=== PATIENT | female | born 1970 | race Caucasian/White ===

== ENCOUNTER 2017-11-25 15:56 | Emergency (ER) | payer SELFPAY ==
--- NOTE | 2017-11-25 16:19 | ER Document Report ---
ED GI/ - General Chief Complaint: Abdominal Pain Stated Complaint: STOMACH PAIN, DIFFICULTY BREATHING Time Seen by Provider: 11/25/17 16:18 Notes: This is a 47-year-old female patient. Presents emergency department with abdominal pain and hives. States that she has psoriatic arthritis. It occasionally gets nausea and abdominal pain and then followed by hives. Has been getting worse. Hives are everywhere. Belly pain is getting worse. TRAVEL OUTSIDE OF THE [place] IN LAST 30 DAYS: No - HPI Patient complains to provider of: Abdominal pain, Diarrhea, Vomiting Timing/Duration: Gradual, Worse Quality of pain: Cramping Severity at maximum: Moderate Severity in ED: Moderate Pain Level: 3 - Related Data Allergies/Adverse Reactions: cephalexin [From Keflex] Allergy (Verified 11/25/17 15:59) codeine Allergy (Verified 11/25/17 15:59) latex Allergy (Verified 11/25/17 15:59) Penicillins Allergy (Verified 11/25/17 15:59) Past Medical History - General Information source: Patient - Social History Smoking Status: Never Smoker Cigarette use (# per day): No Frequency of alcohol use: None Drug Abuse: None Lives with: Spouse/Significant other Family History: None - Past Medical History Cardiac Medical History: Reports: Hx Hypertension Pulmonary Medical History: Reports: None EENT Medical History: Reports: None Neurological Medical History: Reports: None Endocrine Medical History: Reports: Other - Hyperglycemia Renal/ Medical History: Reports: None Malignancy Medical History: Reports: None GI Medical History: Reports: None Musculoskeltal Medical History: Reports None Skin Medical History: Reports Hx Psoriasis - History of urticarial hives, Reports Other Psychiatric Medical History: Reports: None Traumatic Medical History: Reports: None Infectious Medical History: Reports: None Past Surgical History: Reports: Hx Abdominal Surgery, Hx Cholecystectomy Review of Systems - Review of Systems Constitutional: No symptoms reported EENT: No symptoms reported Cardiovascular: Palpitations Respiratory: No symptoms reported Gastrointestinal: Abdominal pain, Diarrhea, Nausea, Vomiting Genitourinary: No symptoms reported Female Genitourinary: No symptoms reported Musculoskeletal: No symptoms reported Skin: Rash, Other - Hives, urticaria Hematologic/Lymphatic: No symptoms reported Neurological/Psychological: No symptoms reported Physical Exam - Vital signs Vitals: Temp Pulse Resp BP Pulse Ox 97.4 F 153 H 24 H 83/55 L 100 11/25/17 15:58 11/25/17 15:58 11/25/17 15:58 11/25/17 15:58 11/25/17 15:58 Interpretation: Tachycardic - General General appearance: Alert, Anxious In distress: Moderate - HEENT Head: Normocephalic, Atraumatic Eyes: Normal Pupils: PERRL Mouth/Lips: Normal. No: Angioedema Mucous membranes: Dry - Respiratory Respiratory status: No respiratory distress Chest status: Nontender Breath sounds: Normal Chest palpation: Normal - Cardiovascular Rhythm: Tachycardia Heart sounds: Normal auscultation Murmur: No - Abdominal Inspection: Normal Distension: No distension Bowel sounds: Normal Tenderness: Tender, Other - Mild diffuse tenderness. No guarding. No rebound. Negative McBurney's, negative Jeffery's. Organomegaly: No organomegaly - Back Back: Normal, Nontender - Extremities General upper extremity: Normal inspection, Nontender, Normal color, Normal ROM , Normal temperature General lower extremity: Normal inspection, Nontender, Normal color, Normal ROM , Normal temperature, Normal weight bearing. No: Leticia's sign - Neurological Neuro grossly intact: Yes Cognition: Normal Orientation: AAOx4 Da Coma Scale Eye Opening: Spontaneous Da Coma Scale Verbal: Oriented Tappen Coma Scale Motor: Obeys Commands Da Coma Scale Total: 15 Speech: Normal Motor strength normal: LUE, RUE, LLE, RLE Sensory: Normal - Psychological Associated symptoms: Normal affect, Normal mood - Skin Skin Temperature: Warm Skin Moisture: Dry Skin Color: Other - Patient has diffuse urticarial hives. There is a large hive present in low back, left lower abdomen, bilateral hands, bilateral arms, underneath her chin and on her neck. Course - Re-evaluation Re-evalutation: 11/25/17 18:01 Patient states she is allergic to Benadryl. Ordered Pepcid. Patient requesting something for pain. States that she is allergic to codeine but has had narcotics before. Will give some fentanyl. Will order Solu-Medrol. IV fluids. CT scan of the abdomen due to the abdominal pain. Reassess. 11/25/17 18:01 Of note, patient began complaining of difficulty breathing with swelling feeling in her neck. Epinephrine was ordered. Another liter of fluid ordered. Patient moved to trauma 1. C1 esterase ordered. FFP ordered. 11/25/17 18:42 FFP was initially ordered but pharmacist now states that we have C1 esterase. Will cancel the FFP and administered this empirically. 11/25/17 20:29 Patient doing better but still tachycardic. Has a little tightness in the chest. Will order repeat EKG. Will repeat lactic acid and CBC. CT scan unremarkable. Will consult hospitalist at this time for admission. 11/25/17 20:56 Hospitaist does not feel comfortable keeping patient here without an ICU with history today of angioedema. Will attempt transfer. 11/25/17 20:57 Dr. Najera accepted the patient at [facility]. Awaiting trasnfer. - Vital Signs Vital signs: Temp Pulse Resp BP Pulse Ox 97.4 F 153 H 23 H 144/99 H 95 11/25/17 15:58 11/25/17 15:58 11/25/17 21:01 11/25/17 21:01 11/25/17 21:01 - Laboratory Result Diagrams: 11/25/17 16:26 11/25/17 16:26 Laboratory results interpreted by me: 11/25/17 11/25/17 11/25/17 16:21 16:26 16:26 WBC 28.0 H RBC 6.15 H Hgb 16.9 H Hct 50.0 H RDW 16.4 H Plt Count 546 H Seg Neuts % (Manual) 80 H Band Neutrophils % 2 L Lymphocytes % (Manual) 12 L Abs Neuts (Manual) 23.0 H Abs Monocytes (Manual) 1.7 H VBG pH VBG pCO2 VBG HCO3 Potassium 3.1 L Carbon Dioxide 15 L BUN 23 H Glucose 172 H POC Glucose 140 H Lactic Acid Calcium 11.1 H Total Protein 9.4 H Urine Protein Urine Bilirubin Urine Urobilinogen Ur Leukocyte Esterase Urine Ascorbic Acid 11/25/17 11/25/17 11/25/17 16:26 16:26 19:00 WBC RBC Hgb Hct RDW Plt Count Seg Neuts % (Manual) Band Neutrophils % Lymphocytes % (Manual) Abs Neuts (Manual) Abs Monocytes (Manual) VBG pH 7.49 H VBG pCO2 20.6 L VBG HCO3 15.2 L Potassium Carbon Dioxide BUN Glucose POC Glucose Lactic Acid 2.2 H Calcium Total Protein Urine Protein 100 H Urine Bilirubin SMALL H Urine Urobilinogen 2.0 H Ur Leukocyte Esterase LARGE H Urine Ascorbic Acid 40 H Critical Care Note - Critical Care Note Total time excluding time spent on procedures (mins): 75 Comments: Tachycardia, angioedema, Discharge - Discharge Clinical Impression: Angioedema Qualifiers: Encounter type: initial encounter Qualified Code(s): T78.3XXA - Angioneurotic edema, initial encounter Abdominal pain Qualifiers: Abdominal location: generalized Qualified Code(s): R10.84 - Generalized abdominal pain Urinary tract infection Qualifiers: Urinary tract infection type: site unspecified Hematuria presence: without hematuria Qualified Code(s): N39.0 - Urinary tract infection, site not specified Disposition: [facility] Admitting Provider: Dr. Najera
[2017-11-25 16:50] LABS: VENOUS BLOOD BASE EXCESS -5.1 mmol/L; VENOUS BLOOD HCO3 15.2 mmol/L (20-32); VENOUS BLOOD PCO2 20.6 mmHg (35-63); VENOUS BLOOD PH 7.49 (7.30-7.42)
[2017-11-25 16:51] LABS: INTERNATIONAL RATION (INR) 0.86; PROTHROMBIN TIME 12.4 SEC (11.4-15.4)
[2017-11-25 16:53] LABS: HEMOGLOBIN 16.9 g/dL (12.0-15.5); MEAN CORPUSCULAR HEMOGLOBIN 27.5 pg (27.0-33.4); MEAN CORPUSCULAR HGB CONC 33.8 g/dL (32.0-36.0); MEAN CORPUSCULAR VOLUME 81 fl (80-97); PLATELET COUNT 546 10^3/uL (150-450); RED BLOOD COUNT 6.15 10^6/uL (3.72-5.28); RED CELL DISTRIBUTION WIDTH 16.4 % (11.5-14.0)
[2017-11-25 17:06] LABS: ALANINE AMINOTRANSFERASE 18 U/L (9-52); ALBUMIN 4.7 g/dL (3.5-5.0); ALKALINE PHOSPHATASE 108 U/L (38-126); ANION GAP 18 (5-19); ASPARTATE AMINO TRANSFERASE 27 U/L (14-36); BILIRUBIN,DIRECT 0.3 mg/dL (0.0-0.4); BILIRUBIN,TOTAL 0.6 mg/dL (0.2-1.3); BLOOD UREA NITROGEN 23 mg/dL (7-20); CALCIUM 11.1 mg/dL (8.4-10.2); CARBON DIOXIDE 15 mmol/L (22-30); CHLORIDE 106 mmol/L (98-107); GLUCOSE 172 mg/dL (75-110); POTASSIUM 3.1 mmol/L (3.6-5.0); SODIUM 138.6 mmol/L (137-145); TOTAL PROTEIN 9.4 g/dL (6.3-8.2)
[2017-11-25] MEDS ORDERED: FAMOTIDINE INJ/PF 20 MG/2 ML SDV IV ONE (17:16)
[2017-11-25] MEDS ORDERED: METHYLPREDNISOLONE INJ 125 MG/2 ML SDV IV ONE (17:16)
[2017-11-25] MEDS ORDERED: NORMAL SALINE 1000 ML 1,000 ML IV ONE ×3 (17:17→22:46)
[2017-11-25] MEDS ORDERED: FENTANYL CITRATE INJ/PF 100 MCG/2 ML AMPUL IV ONE (17:17)
[2017-11-25 17:18] LABS: ABSOLUTE LYMPHOCYTES# (MANUAL) 3.4 10^3/uL (0.5-4.7); ABSOLUTE MONOCYTES # (MANUAL) 1.7 10^3/uL (0.1-1.4); BAND NEUTROPHILS % (MANUAL) 2 % (3-5); BASOPHILS % (MANUAL) 0 % (0-2); EOSINOPHILS % (MANUAL) 0 % (0-6); LYMPHOCYTES % (MANUAL) 12 % (13-45); MONOCYTES % (MANUAL) 6 % (3-13); SEGMENTED NEUTROPHILS % (MAN) 80 % (42-78); TOTAL CELLS COUNTED 100
[2017-11-25 17:20] LABS: ANISOCYTOSIS 1+; PLATELET COMMENT INCREASED; POIKILOCYTOSIS SLIGHT; ROULEAUX SLIGHT; TOXIC GRANULATION SLIGHT
[2017-11-25] MEDS ORDERED: EPINEPHRINE INJ/PF 1 MG/1 ML AMPULE IM ONE (17:44)
[2017-11-25] MEDS ORDERED: NORMAL SALINE 250 ML IV PRN (17:45)
[2017-11-25] MEDS ORDERED: ONDANSETRON HCL INJ/PF 4 MG/2 ML SDV IV ONE (19:04)
[2017-11-25] MEDS ORDERED: [UNRECOGNIZED DRUG - REMARK] IV ONE (19:30)
[2017-11-25 19:32] LABS: APPEARANCE,URINE CLOUDY; BILIRUBIN,URINE SMALL (NEGATIVE); COLOR,URINE AMBER; GLUCOSE, URINE NEGATIVE (NEGATIVE); KETONES,URINE NEGATIVE (NEGATIVE); LEUKOCYTE ESTERASE,URINE LARGE (NEGATIVE); NITRITE,URINE NEGATIVE (NEGATIVE); PROTEIN,URINE 100 mg/dL (NEGATIVE); URINE SPECIFIC GRAVITY 1.031
[2017-11-25] MEDS ORDERED: C1 ESTERASE INHIBITOR 500 UNIT IV ONE (20:00)
--- NOTE | 2017-11-25 20:23 | RADIOLOGY REPORT (SQ) ---
EXAM DESCRIPTION: CT ABD/PELVIS WITH IV ORAL COMPLETED DATE/TIME: 11/25/2017 8:14 pm REASON FOR STUDY: abd pain COMPARISON: None. TECHNIQUE: CT scan of the abdomen and pelvis performed with intravenous and oral contrast using nicole kathrine scanning technique with dynamic intravenous contrast injection. Images reviewed with lung, soft t issue, and bone windows. Reconstructed coronal and sagittal MPR images reviewed. Delayed images for e valuation of the urinary system also acquired. All images stored on PACS. All CT scanners at this facility use dose modulation, iterative reconstruction, and/or weight based d osing when appropriate to reduce radiation dose to as low as reasonably achievable (ALARA). [facility]: Dose Right [facility]: CareDose [facility]: Dose Right [facility]: Teradose 4D [facility]: [employer] CONTRAST TYPE AND DOSE: contrast/concentration: Isovue 370.00 mg/ml; Total Contrast Delivered: 100.0 ml; Total Saline Delivered: 45.0 ml RENAL FUNCTION: GFR > 60. RADIATION DOSE: CT Rad equipment meets quality standard of care and radiation dose reduction techniq ues were employed. CTDIvol: 21.1 - 21.1 mGy. DLP: 2346 mGy-cm. . LIMITATIONS: None. FINDINGS: LOWER CHEST: No significant findings. No nodules or infiltrates. LIVER: Mild to moderate diffuse hepatic steatosis. No masses. No dilated ducts. SPLEEN: Normal size. No focal lesions. PANCREAS: No masses. No significant calcifications. No adjacent inflammation or peripancreatic fluid collections. Pancreatic duct not dilated. GALLBLADDER: Surgically absent. ADRENAL GLANDS: No significant masses or asymmetry. RIGHT KIDNEY AND URETER: No solid masses. No significant calcifications. No hydronephrosis or hyd roureter. LEFT KIDNEY AND URETER: No solid masses. No significant calcifications. No hydronephrosis or hydr oureter. AORTA AND VESSELS: No aneurysm. No dissection. Renal arteries, SMA, celiac without stenosis. RETROPERITONEUM: No retroperitoneal adenopathy, hemorrhage or masses. BOWEL AND PERITONEAL CAVITY: No obstruction. No visualized masses. No free fluid. No inflammatory ch anges or thickening of bowel wall. APPENDIX: Normal. PELVIS: No significant masses. Normal bladder. No free fluid. ABDOMINAL WALL: No masses. Fat containing periumbilical hernia with factual defect measuring 14 mm a nd hernia sac measuring 6.7 cm soft tissues otherwise normal. BONES: Degenerative disc disease L5-S1. No fracture or suspicious osseous lesion. OTHER: No other significant finding. IMPRESSION: NO ACUTE INFLAMMATORY CHANGE IDENTIFIED WITHIN THE ABDOMEN OR PELVIS. HEPATIC STEATOSIS. FAT CONTAINING PERIUMBILICAL HERNIA. TECHNICAL DOCUMENTATION: JOB ID: [id number] Quality ID # 436: Final reports with documentation of one or more dose reduction techniques (e.g., Au tomated exposure control, adjustment of the mA and/or kV according to patient size, use of iterative reconstruction technique) 2010 [employer]- All Rights Reserved
[2017-11-25] MEDS ORDERED: CIPROFLOXACIN 400 MG/D5W RTU 400 MG/200 ML RTUPB IV ONE (21:17)
[2017-11-25 22:04] LABS: HEMATOCRIT 47.4 % (36.0-47.0); HEMOGLOBIN 15.7 g/dL (12.0-15.5); MEAN CORPUSCULAR HEMOGLOBIN 27.2 pg (27.0-33.4); MEAN CORPUSCULAR HGB CONC 33.1 g/dL (32.0-36.0); MEAN CORPUSCULAR VOLUME 82 fl (80-97); PLATELET COUNT 501 10^3/uL (150-450); RED BLOOD COUNT 5.76 10^6/uL (3.72-5.28); RED CELL DISTRIBUTION WIDTH 16.3 % (11.5-14.0)
[2017-11-25 22:20] LABS: WHITE BLOOD COUNT 33.4 10^3/uL (4.0-10.5)
[2017-11-25 22:25] LABS: ABSOLUTE LYMPHOCYTES# (MANUAL) 2.3 10^3/uL (0.5-4.7); ABSOLUTE MONOCYTES # (MANUAL) 0.3 10^3/uL (0.1-1.4); ABSOLUTE NEUTROPHILS# (MANUAL) 30.7 10^3/uL (1.7-8.2); BASOPHILS % (MANUAL) 0 % (0-2); EOSINOPHILS % (MANUAL) 0 % (0-6); LYMPHOCYTES % (MANUAL) 3 % (13-45); MONOCYTES % (MANUAL) 1 % (3-13); SEGMENTED NEUTROPHILS % (MAN) 92 % (42-78); TOTAL CELLS COUNTED 100
[2017-11-25 22:29] LABS: ANISOCYTOSIS SLIGHT; PLATELET COMMENT INCREASED; PLATELET LARGE PRESENT; POLYCHROMASIA SLIGHT; TOXIC GRANULATION 1+
[2017-11-26 00:15] VITALS: BP 152/96
--- NOTE | 2017-11-26 09:39 | EKG REPORT ---
SEVERITY:- OTHERWISE NORMAL ECG - SINUS TACHYCARDIA : Confirmed by: Maricarmen López 26-Nov-2017 09:38:53
--- NOTE | 2017-11-26 09:39 | EKG REPORT ---
SEVERITY:- BORDERLINE ECG - SINUS TACHYCARDIA PROBABLE LEFT ATRIAL ABNORMALITY BORDERLINE T ABNORMALITIES, INFERIOR LEADS : Confirmed by: Maricarmen López 26-Nov-2017 09:38:46
[2017-11-29 16:28] LABS: PATH REVIEW PATHOLOGIST REVIEWED
== END 2017-11-26 00:18 | disposition short-term general hospital (02) ==
LOC: ER 15:56
DX: T78.3XXA Angioneurotic edema, initial encounter (principal); N39.0 Urinary tract infection, site not specified; R10.84 Generalized abdominal pain; R00.0 Tachycardia, unspecified; R06.02 Shortness of breath; L40.50 Arthropathic psoriasis, unspecified; R11.0 Nausea
CPT/HCPCS: 93005; 99291; 99292; 96372; 96361; 96375; 96365; 36415; 87040; 87086; 82962; 84703; 85025; 85610; 86160; 87088; 80053; 81001; 82803; 83605; 86161; 74177; 93010; J0171; J3010; J2930; J2405; J7030; J0744; S0028; J0597

== ENCOUNTER 2020-04-11 17:48 | Emergency (ER) | payer MEDICAID ==
[2020-04-11] MEDS ORDERED: ONDANSETRON HCL INJ/PF 4 MG/2 ML SDV IV ONE (19:06)
[2020-04-11] MEDS ORDERED: MORPHINE SULFATE 10 MG/ML INJ IV ONE (19:06)
--- NOTE | 2020-04-11 19:09 | ER Document Report ---
ED Medical Screen (RME) - General Chief Complaint: Abdominal Pain Stated Complaint: RIGHT FLANK Time Seen by Provider: 04/11/20 19:02 Mode of Arrival: Ambulatory Notes: HPI; 49-year-old female presents the emergency room complaining of intermittent right lower quadrant pain for the past 2 days become more constant and sharp since yesterday. 1 episode of diarrhea last night. Nausea but no vomiting. Denies fevers. Denies any recent travel. No medications for symptoms. PE: Alert and oriented x3. Lungs clear to auscultation without rales, rhonchi, wheezes. Heart: Regular rate rhythm without murmurs, rubs, gallops. Abdomen is soft mild tenderness to the right lower quadrant. No guarding, no rebound positive bowel sounds x4. I have greeted and performed a rapid initial assessment of this patient. A co mprehensive ED assessment and evaluation of the patient, analysis of test results and completion of the medical decision making process will be conducted by additional ED providers. I have specifically instructed the patient or family members with the patient to immediately return to any nursing staff should anything change in the patient's condition or with their chief complaint. TRAVEL OUTSIDE OF THE [place] IN LAST 30 DAYS: No - Related Data Allergies/Adverse Reactions: cephalexin [From Keflex] Allergy (Verified 11/25/17 15:59) codeine Allergy (Verified 11/25/17 15:59) latex Allergy (Verified 11/25/17 15:59) lisinopril Allergy (Verified 04/11/20 18:54) Penicillins Allergy (Verified 11/25/17 15:59) Home Medications: Simvastatin, Spiriva, Atenolol, Symbicort, Hydrocodone Past Medical History - Past Medical History Cardiac Medical History: Reports: Hx Hypertension Renal/ Medical History: Denies: Hx Peritoneal Dialysis Skin Medical History: Reports Hx Psoriasis - History of urticarial hives Past Surgical History: Reports: Hx Abdominal Surgery, Hx Cholecystectomy Physical Exam - Vital signs Vitals: Temp Pulse Resp BP Pulse Ox 98.1 F 117 H 20 149/100 H 98 04/11/20 17:54 04/11/20 17:54 04/11/20 17:54 04/11/20 17:54 04/11/20 17:54 Course - Vital Signs Vital signs: Temp Pulse Resp BP Pulse Ox 98.1 F 117 H 20 149/100 H 98 04/11/20 18:57 04/11/20 17:54 04/11/20 17:54 04/11/20 17:54 04/11/20 17:54
[2020-04-11 21:07] LABS: APPEARANCE,URINE CLEAR; BILIRUBIN,URINE NEGATIVE (NEGATIVE); COLOR,URINE YELLOW; GLUCOSE, URINE NEGATIVE (NEGATIVE); KETONES,URINE NEGATIVE (NEGATIVE); LEUKOCYTE ESTERASE,URINE SMALL (NEGATIVE); NITRITE,URINE NEGATIVE (NEGATIVE); PROTEIN,URINE NEGATIVE (NEGATIVE); URINE SPECIFIC GRAVITY 1.021; UROBILINOGEN,URINE NEGATIVE mg/dL (<2.0)
--- NOTE | 2020-04-11 22:14 | ER Document Report ---
Entered by JERRY COATES SCRIBE 04/11/20 2170 Acting as scribe for:RAJEEV ZARAGOZA IV, MD ED GI/ - General Chief Complaint: Abdominal Pain Stated Complaint: RIGHT FLANK Time Seen by Provider: 04/11/20 19:02 Mode of Arrival: Ambulatory Information source: Patient Notes: This 49 year old female patient presents to the ED today with complaints of RLQ abdominal pain that started x2 days ago, worse yesterday. Patient describes the pain as intermittent and sharp initially that is now constant and radiates to her right hip and pelvis. Reports x1 episode of diarrhea yesterday with green- colored stool, but denies nausea or vomiting. She notes that she may have an umbilical hernia and that may be related to her RLQ pain. She also notes that she may have IBS or Crohn's disease, but denies an official diagnosis. Reports a surgical history of cholecystectomy. TRAVEL OUTSIDE OF THE [place] IN LAST 30 DAYS: No - Related Data Allergies/Adverse Reactions: cephalexin [From Keflex] Allergy (Verified 11/25/17 15:59) codeine Allergy (Verified 11/25/17 15:59) latex Allergy (Verified 11/25/17 15:59) lisinopril Allergy (Verified 04/11/20 18:54) Penicillins Allergy (Verified 11/25/17 15:59) Home Medications: Simvastatin, Spiriva, Atenolol, Symbicort, Hydrocodone Past Medical History - General Information source: Patient, [facility] Records - Social History Smoking Status: Never Smoker Cigarette use (# per day): No Chew tobacco use (# tins/day): No Smoking Education Provided: No Family History: Reviewed & Not Pertinent Patient has suicidal ideation: No Patient has homicidal ideation: No - Past Medical History Cardiac Medical History: Reports: Hx Hypertension Skin Medical History: Reports Hx Psoriasis - History of urticarial hives Past Surgical History: Reports: Hx Cholecystectomy, Hx Herniorrhaphy Review of Systems - Review of Systems Constitutional: No symptoms reported EENT: No symptoms reported Cardiovascular: No symptoms reported Respiratory: No symptoms reported Gastrointestinal: See HPI, Abdominal pain - RLQ, pelvis. denies: Nausea, Vomiting Genitourinary: No symptoms reported Female Genitourinary: No symptoms reported Musculoskeletal: See HPI, Joint pain - Right hip pain Skin: No symptoms reported Hematologic/Lymphatic: No symptoms reported Neurological/Psychological: No symptoms reported -: Yes All other systems reviewed and negative Physical Exam - Vital signs Vitals: Temp Pulse Resp BP Pulse Ox 98.1 F 117 H 20 149/100 H 98 04/11/20 17:54 04/11/20 17:54 04/11/20 17:54 04/11/20 17:54 04/11/20 17:54 - General General appearance: Alert In distress: None - HEENT Head: Normocephalic, Atraumatic Eyes: Normal Pupils: PERRL - Respiratory Respiratory status: No respiratory distress Chest status: Nontender Breath sounds: Normal Chest palpation: Normal - Cardiovascular Rhythm: Regular, Tachycardia Heart sounds: Normal auscultation Murmur: No Friction rub: No Gallop: None auscultated - Abdominal Tenderness: Tender - Tenderness to palpation of RLQ, Rebound, Other - Abdomen soft. No: McBurney's point - Back Back: Normal, Nontender - Extremities General upper extremity: Normal inspection General lower extremity: Normal inspection - Neurological Neuro grossly intact: Yes Orientation: AAOx4 - Psychological Associated symptoms: Normal affect, Normal mood - Skin Skin Temperature: Warm Skin Moisture: Dry Skin Color: Normal Course - Re-evaluation Re-evalutation: 04/12/20 00:30 Results of ED MSE discussed with patient. All questions were answered prior to discharge. Emergency signs and symptoms, reasons to return to the emergency department discussed with patient. - Vital Signs Vital signs: Temp Pulse Resp BP Pulse Ox 98.1 F 117 H 20 149/100 H 98 04/11/20 18:57 04/11/20 17:54 04/11/20 17:54 04/11/20 17:54 04/11/20 17:54 - Laboratory Result Diagrams: 04/11/20 22:37 04/11/20 22:37 Laboratory results interpreted by me: 04/11/20 04/11/20 04/11/20 20:20 22:37 22:37 WBC 15.2 H RDW 15.7 H Absolute Neuts (auto) 11.1 H AST 37 H Ur Leukocyte Esterase SMALL H - Diagnostic Test Radiology reviewed: Reports reviewed Discharge - Discharge Clinical Impression: Abdominal wall pain in right lower quadrant Condition: Good Disposition: HOME, SELF-CARE Additional Instructions: Return to the Emergency Department without delay if any worse. HOME CARE INSTRUCTIONS & INFORMATION: Thank you for choosing us for your medical needs. We hope you're satisfied with the care you received. After you leave, you must properly care for your problem and, at the same time, observe its progress. Any condition can change. Some illnesses can change rapidly over hours or days. If your condition worsens, return to the Emergency Department or see your physician promptly. ABOUT YOUR X-RAYS AND EKG'S: If you had an EKG or X-rays taken, they have been read by the Emergency Physician. The X-rays and EKG's will also be read by a Radiologist or Fur Scraper within 24 hours. If discrepancies are noted, you wi ll be notified by telephone. Please be certain the ED has a correct telephone number & address where you can be reached. Also, realize that some fractures or abnormalities do not show up on initial X-rays. If your symptoms continue, see your physician. ABOUT YOUR LABORATORY TEST: If you had laboratory tests, the results have been reviewed by the Emergency Physician. Some test results (for example cultures) may not be available for several days. You will be contacted if any test result shows you need additional treatment. Please be certain the ED has a correct telephone number and address where you can be reached. ABOUT YOUR MEDICATIONS: You will receive instructions on how to take your medicine on the prescription label you receive. Additional information may be provided by the Pharmacy. If you have questions afterwards, call the ED for clarification or further instructions. Some prescribed medications may cause drowsiness. Do not perform tasks such as driving a car or operating machinery without consulting your Pharmacist. If you feel you need a refill of pain medication, your condition will need re-evaluation. Please do not call for a refill of any medication. ABOUT YOUR SIGNATURE: Signature of this document acknowledges to followin. Understanding that you received emergency treatment and that you may be released before al medical problems are known or treated. Please be certain the ED has a correct phone number & address where you can be reached. 2. Acknowledgement that you will arrange for follow-up care as recommended. 3. Authorization for the Emergency Physician to provide information to your follow-up Physician in order to maximize your care. AT ANY TIME, IF YOUR SYMPTOMS CHANGE SIGNIFICANTLY OR WORSEN OR YOU DEVELOP NEW SYMPTOMS, RETURN TO THE EMERGENCY DEPARTMENT IMMEDIATELY FOR RE-EVALUATION. OUR GOAL IS TO PROVIDE EXCELLENT MEDICAL CARE! WE HOPE THAT WE HAVE MET YOUR EXPECTATIONS DURING YOUR EMERGENCY DEPARTMENT VISIT AND THAT YOU FEEL YOU HAVE RECEIVED EXCELLENT CARE! Prescriptions: Oxycodone HCl/Acetaminophen [Percocet 5-325 mg Tablet] 1 tab PO Q6HP PRN #20 tablet PRN Reason: Ondansetron [Zofran Odt 4 mg Tablet] 1 - 2 tab PO Q8HP PRN #20 tab.rapdis PRN Reason: For Nausea/Vomiting Levofloxacin [Levaquin 750 mg Tablet] 750 mg PO DAILY 4 Days #4 tablet Promethazine HCl [Phenergan 25 mg Tablet] 1 tab PO Q6H PRN #15 tablet PRN Reason: Referrals: MARNIE MEJÍA DO [Primary Care Provider] - 04/12/20 I personally performed the services described in the documentation, reviewed and edited the documentation which was dictated to the scribe in my presence, and it accurately records my words and actions.
[2020-04-11] MEDS ORDERED: ONDANSETRON HCL INJ/PF 4 MG/2 ML SDV ONE (22:44)
[2020-04-11 22:48] LABS: ABSOLUTE BASOPHILS # (AUTO) 0.1 10^3/uL (0.0-0.2); ABSOLUTE EOSINOPHILS # (AUTO) 0.2 10^3/uL (0.0-0.6); ABSOLUTE LYMPHOCYTES (AUTO) 2.8 10^3/uL (0.5-4.7); ABSOLUTE NEUT (AUTO) 11.1 10^3/uL (1.7-8.2); BASOPHILS % (AUTO) 0.9 % (0-2); EOSINOPHILS % (AUTO) 1.5 % (0-6); HEMATOCRIT 38.9 % (36.0-47.0); HEMOGLOBIN 13.4 g/dL (12.0-15.5); LYMPHOCYTES % (AUTO) 18.5 % (13-45); MEAN CORPUSCULAR HEMOGLOBIN 29.6 pg (27.0-33.4); MEAN CORPUSCULAR HGB CONC 34.4 g/dL (32.0-36.0); MEAN CORPUSCULAR VOLUME 86 fl (80-97); MONOCYTES % (AUTO) 6.5 % (3-13); PLATELET COUNT 340 10^3/uL (150-450); RED BLOOD COUNT 4.52 10^6/uL (3.72-5.28); RED CELL DISTRIBUTION WIDTH 15.7 % (11.5-14.0); SEGMENTED NEUTROPHILS % (AUTO) 72.6 % (42-78); TOTAL CELLS COUNTED % (AUTO) 100 %; WHITE BLOOD COUNT 15.2 10^3/uL (4.0-10.5)
[2020-04-11] MEDS ORDERED: HYDROMORPHONE HCL INJ/PF 2 MG/ML AMPULE IV ONE ×2 (22:48→23:58)
[2020-04-11 23:06] LABS: ALBUMIN 4.1 g/dL (3.5-5.0); ALKALINE PHOSPHATASE 83 U/L (38-126); ANION GAP 7 (5-19); ASPARTATE AMINO TRANSFERASE 37 U/L (14-36); BILIRUBIN,TOTAL 0.3 mg/dL (0.2-1.3); BLOOD UREA NITROGEN 14 mg/dL (7-20); CALCIUM 9.5 mg/dL (8.4-10.2); CARBON DIOXIDE 29 mmol/L (22-30); CHLORIDE 101 mmol/L (98-107); GLUCOSE 93 mg/dL (75-110); POTASSIUM 3.6 mmol/L (3.6-5.0); TOTAL PROTEIN 7.7 g/dL (6.3-8.2)
--- NOTE | 2020-04-11 23:40 | RADIOLOGY REPORT (SQ) ---
EXAM DESCRIPTION: CT ABDOMEN PELVIS WITH IV CONTRAST COMPLETED DATE/TME: 04/11/2020 22:05 CLINICAL HISTORY: 49 years, Female, right lower quadrant pain COMPARISON: Prior study from 11/25/2017 TECHNIQUE: Contrast enhanced CT of the abdomen/pelvis was acquired. Coronal and sagittal reformations were created. Images were obtained after the uneventful administration of 100 mL of Omnipaque 350 intravenous contrast. Images stored on PACS. All CT scanners at this facility use dose modulation, iterative reconstruction, and/or weight based dosing when appropriate to reduce radiation dose to as low as reasonably achievable (ALARA). [facility]: Dose Right [facility]: CareDose [facility]: Dose Right [facility]: Teradose 4D [facility]: [employer] LIMITATIONS: None. FINDINGS: Limited evaluation of the lower chest reveals bands of opacity about both lung bases, indicating areas of atelectasis and/or scar. Lung bases are otherwise clear. The liver is diffusely low in attenuation relative to the spleen. No focal liver lesions are appreciated. Spleen, pancreas, both adrenal glands, and both kidneys appear normal. The gallbladder is absent. No hydronephrosis or hydroureter. The urinary bladder is partially collapsed, thus its evaluation is limited. Assessment of the uterus reveals hypodensity about the expected location of the endometrial cavity, indeterminate on this examination. There is also a fluid density lesion located in the left adnexa measuring 3.4 x 2.7 cm in size on image 73 of series 3. Small and large bowel are normal in caliber. No evidence of bowel obstruction. Appendix is normal. Moderately sized ventral hernia is noted just above the umbilicus. Mild soft tissue swelling is noted about the superficial soft tissues of the anterior abdominal wall. This is nonspecific. Vascular structures opacify with contrast normally. No suspicious lymphadenopathy or drainable fluid collections are appreciated. Bone windows show no destructive osseous lesions. IMPRESSION: Mild inflammatory stranding about the superficial soft tissues of the anterior abdominal wall at the level of the right lower quadrant, nonspecific. Correlate with physical examination. Hypodensity about the expected location of the uterine endometrium, either indicating fluid within the endometrial cavity or endometrial thickening. This could be further assessed with nonemergent pelvic ultrasound, especially if there is a history of vaginal bleeding. 3.4 cm benign appearing ovarian cyst. Recommend follow-up pelvic US in 6-12 months. Reference: J Am Radha Radiol 2013;10:675-681 Hepatic steatosis. Moderately sized ventral hernia. TECHNICAL DOCUMENTATION: Quality ID # 436: Final reports with documentation of one or more dose reduction techniques (e.g., Automated exposure control, adjustment of the mA and/or kV according to patient size, use of iterative reconstruction technique) copyright 2011 [employer]- All Rights Reserved
[2020-04-12] MEDS ORDERED: LEVOFLOXACIN 750 MG TABLET PO ONE (00:28)
[2020-04-12] MEDS ORDERED: HYDROCODONE/ACETAMINOPHEN 5-325 MG (6 TAB/ER DISP) PO PRN (00:30)
[2020-04-12 01:06] VITALS: BP 145/88
== END 2020-04-12 01:11 | disposition home or self-care (01) ==
LOC: ER 17:48
DX: R10.31 Right lower quadrant pain (principal); K43.9 Ventral hernia without obstruction or gangrene; R10.2 Pelvic and perineal pain; M25.551 Pain in right hip; R10.813 Right lower quadrant abdominal tenderness; K76.0 Fatty (change of) liver, not elsewhere classified; R19.7 Diarrhea, unspecified; R19.5 Other fecal abnormalities; R00.0 Tachycardia, unspecified; I10 Essential (primary) hypertension; Z79.899 Other long term (current) drug therapy; Z79.891 Long term (current) use of opiate analgesic; Z79.51 Long term (current) use of inhaled steroids; Z90.49 Acquired absence of other specified parts of digestive tract; Z88.1 Allergy status to other antibiotic agents; Z88.6 Allergy status to analgesic agent; Z88.5 Allergy status to narcotic agent; Z91.040 Latex allergy status; Z88.8 Allergy status to other drugs, medicaments and biological substances; Z88.0 Allergy status to penicillin
CPT/HCPCS: 96376; 99284; 96374; 96375; 36415; 83690; 84703; 85025; 80053; 81001; 74177; J1170 ×2; J2405; J3490